=== PATIENT | female | born 1980 | race Hispanic/Latino ===

== ENCOUNTER 2017-10-16 04:18 | Inpatient (IN) | payer OTHER ==
[~2017-10-16 04:18] MED LIST: BUTORPHANOL 1 MG/ML INJ IV PRN; CARBOPROST TROME 250 MCG/ML IM PRN; MEPERIDINE HCL 25 MG/0.5 ML IV PRN; METHYLERGONOVINE 0.2MG/ML AMP IM PRN; MIDAZOLAM HCL 2 MG/2 ML INJ IV PRN; PROMETHAZINE 25 MG/ML VIAL IM PRN; Ringers Lactate 1,000 ML IV PRN
[2017-10-16] MEDS ORDERED: Ringers Lactate 1,000 ML IV SCH (05:00)
[2017-10-16] MEDS ORDERED: OXYTOCIN/LR 20 UNIT/1,000 ML BAG IV SCH ×2 (05:00→21:00)
[2017-10-16 05:06] VITALS: BMI 30.9
[2017-10-16 06:26] LABS: RPR Titer ND
[2017-10-16 06:28] LABS: Absolute Lymphocytes (CBC) 2.9 K/uL (0.7-4.9); Absolute Monocytes 0.7 K/uL (0.1-1.3); Absolute Neutrophil 5.4 K/uL (1.8-8.0); Basophils % 0.4 % (0-1.3); Eosinophils % 0.7 % (0-4.4); Hematocrit 38.3 % (36.0-45.0); MCH 30.3 pg (27.0-35.0); MCV 91.4 fL (80-100); MPV 10.6 fL (7.6-11.3); Monocytes % 7.6 % (3.3-12.3); RBC Red Blood Cell Count 4.19 M/uL (3.86-4.86)
[2017-10-16 06:48] LABS: Urine Appearance CLOUDY; Urine Bilirubin NEGATIVE (NEG); Urine Blood 2+ (NEG); Urine Color YELLOW; Urine Glucose NEGATIVE (NEG); Urine Protein NEGATIVE (NEG)
[2017-10-16 06:53] LABS: Urine Microscopic Reflex ORDER UMIC
[2017-10-16 06:59] LABS: Urine Bacteria >50 /HPF (<20); Urine RBC <5 /HPF (NONE SEEN)
[2017-10-16 07:00] LABS: Calcium Oxalate Crystals- Ur FEW (NONE SEEN); Urine Culture Reflex Order REFLEXED
[2017-10-16] MEDS ORDERED: LIDOCAINE 1% 20 ML MDV ONE (08:55)
--- NOTE | 2017-10-16 12:40 | PREOPHP ---
Date of Admission: 10/16/2017 A 37-year-old, 3, para 2, at 39 weeks 4 days. 2.5 cm, 50% effaced, vertex, well applied, -1 s tation. Rupture of membranes, clear fluid. Rh positive, immune to Rubella. Negative beta strep scr een. The patient states she will be going natural, although of course, she knows she can change her mind. Anticipate delivery sometime later today. Full labor talk given. ADRIANO/ANDI Voice ID: [id number]
--- NOTE | 2017-10-16 18:37 | PN ---
The patient is jose antonio regularly, but really not in any significant discomfort now, and she is on 24 milliunits of Pitocin. Cervical exam shows no major change since rupture of membranes. We will change out the bag of Pitocin, start at half the dose, and increase back up. Hopefully this will get her into a more active labor pattern. ADRIANO/ANDI Voice ID: [id number] Report ID: [id number]
[2017-10-16] MEDS ORDERED: Oxycodone HCl/Acetaminophen 1 TAB TAB PO PRN (20:18)
[2017-10-16] MEDS ORDERED: DIPHENHYDRAMINE 25 MG TAB/CAP PO PRN (20:18)
[2017-10-16] MEDS ORDERED: IBUPROFEN 200 MG TAB PO PRN (20:18)
[2017-10-16] MEDS ORDERED: DOCUSATE NA/SENNA CONC 1 TAB PO PRN (20:18)
[2017-10-16] MEDS ORDERED: BISACODYL 10 MG RECTAL SUPP RECT PRN (20:18)
[2017-10-16] MEDS ORDERED: ACETAMINOPHEN 500 MG TAB PO PRN (20:18)
[2017-10-16 22:02] LABS: RPR (Rapid Plasma Reagin) NON-REACT (NON-REACT)
[2017-10-16] MEDS: METHYLERGONOVINE 0.2 MG TAB PO PRN (22:10)
[2017-10-16] MEDS: Oxycodone HCl/Acetaminophen 1 TAB TAB PO PRN (22:10)
--- NOTE | 2017-10-16 23:49 | PN ---
We changed that to Pitocin, cut it in half. Now, we worked it back to 26 milliunits. She is contrac ting regularly. Baby still looks good. She has had a dose of analgesic, and she just got catheteriz ed, and we got about 400 cc out. She has progressed to 4 cm. The baby I think is posterior. She wi ll start doing pelvic rocks. I think we are getting ready to get into more active phase at this poin t. ADRIANO/ANDI Voice ID: [id number] Report ID: [id number]
--- NOTE | 2017-10-17 01:08 | PN ---
The patient has now progressed to 7 cm, 90% effaced, vertex, 0 station. FHTs looked very good. She is jose antonio regularly and very firmly at this point. She feels like she has to have a bowel movem ent. We are very close to her going to complete and then delivering. Pelvic rocks suggested as I th ink the baby is occiput posterior. As soon as it rotates I think we will have a baby. ADRIANO/ANDI Voice ID: [id number] Report ID: [id number]
--- NOTE | 2017-10-17 01:29 | PN ---
The patient is now 9 cm, 100% effaced, +1 station. Baby looks good. In the next few minutes, she sh ould begin pushing. ADRIANO/ANDI Voice ID: [id number] Report ID: [id number]
[2017-10-17] MEDS: METHYLERGONOVINE 0.2 MG TAB PO PRN ×2 (02:00→06:05)
--- NOTE | 2017-10-17 07:05 | OP ---
Surgeon: Jenaro Arnett MD Indication And Procedure: Court Roland is 37-year-old 3, para 2, 39 weeks 4 days, followe d antepartum without complications. Rh positive. Immune to Rubella. Negative beta strep screen. A pproximately 2.5-3 cm on admission ruptured membranes. Clear fluid. The patient had Stadol IV, Phen ergan IM 2 times during the labor, otherwise used Lamaze breathing techniques to best advantage. Aft er achieved 5.5 cm, began doing pelvic rocks, and brought the baby down, and went to complete rapidly . Second stage of 10 minutes or less. Spontaneous vaginal delivery of an estimated 7-pound plus, fe male, Apgars 9 and 9. Small first-degree laceration requiring 3 stitches of 2-0 chromic, local infil tration. Schultze delivery of the placenta, which inspected and noted to be intact and normal. Uter us mild to moderate hypotonus. Methergine 0.2 mg IM, IV drip Pitocin, and massage. Estimated blood loss 450-500 cc. The patient tolerated all procedures well. Final Diagnosis: Term intrauterine at 39 weeks 4 days, vaginal delivery, mild to moderate uterine hypotonus. ADRIANO/MODL Voice ID: [id number] Report ID: [id number]
[2017-10-17] MEDS: Oxycodone HCl/Acetaminophen 1 TAB TAB PO PRN (20:33)
--- NOTE | 2017-10-18 05:57 | DS ---
Hospital Course: A 37-year-old, 3, para 2, 39 weeks 2 days. Delivered an estimated 7-pound female, Apgars 9 and 9. No episiotomy. Very small first- degree laceration at the posterior fourchette, 3 stitches, 2-0 chromic under local infiltration. During the labor, Stadol IV x2. Otherwise Lamaze breathing techniques. Schaefer delivery of the placenta, which inspected and noted to be intact and normal. Wdub-mi-zzggmapa uterine hypotonus, 0.2 mg of Methergine IM as well as IV drip Pitocin. Estimated blood loss 450-500 cc. Uterus contracted down well thereafter. Overnight, the patient has done quite well, is afebrile this morning, and ambulating, voiding. Lochia is normal. Will be dismissed later this evening or tomorrow morning to report back to my office in 6 weeks for followup. Report any temperature elevation of 100 degrees or greater, severe pain, heavy bleeding, or any other type of abnormalities. She has had her Tdap administration during the . She has no complaints or problems this morning. Final Diagnosis: Term intrauterine 39 weeks 4 days, vaginal delivery , [id number] hypotonus. ADRIANO/ANDI Voice ID: [id number] Report ID: [id number]
[2017-10-18 07:33] VITALS: BP 120/67; TEMP 96.9
[2017-10-18 12:40] LABS: HBsAG Nonreactive (Nonreactive)
== END 2017-10-18 09:05 | disposition home or self-care (01) | DRG 775 ==
LOC: 2ND-WC 04:18
PROVIDERS: ADMIT Specialist; ATTEND Specialist
PROC: 10907ZC Drainage of Amniotic Fluid, Therapeutic from Products of Conception, Via Natural or Artificial Opening (ICD-10-PCS; principal; 2017-10-16)
PROC: 10E0XZZ Delivery of Products of Conception, External Approach (ICD-10-PCS; 2017-10-16)
PROC: 0HQ9XZZ Repair Perineum Skin, External Approach (ICD-10-PCS; 2017-10-16)
DX: O70.0 First degree perineal laceration during delivery (principal); O62.2 Other uterine inertia; Z3A.39 39 weeks gestation of pregnancy; Z37.0 Single live birth
CPT/HCPCS: 36415; 81003; 81015; 85025; 86592; 86850; 86900; 86901; 87086; 87088; 87340; J0595; J2175; J2210; J2550; J2590